=== PATIENT | male | born 1970 | race Caucasian/White ===

== ENCOUNTER 2022-03-29 13:15 | Emergency (ER) | payer OTHER, SELFPAY ==
--- NOTE | 2022-03-29 | ECG_ITS ---
Test Reason : hi bp Blood Pressure : / mmHG Vent. 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
[2022-03-29 13:57] VITALS: BP 190/100; PULSE 82; RESP 18; TEMP 36.6; O2SAT 96; BMI 45.9
[2022-03-29 14:16] LABS: MANUAL DIFF FLAG NO
[2022-03-29 14:19] LABS: Basophils Percent Auto 0.3 % (0-2); Eosinophils Absolute Auto 0.1 X10*3/uL (0.0-0.4); Eosinophils Percent Auto 0.8 % (0-4); Hematocrit 47.7 % (42.0-52.0); Hemoglobin 15.8 g/dl (14.0-18.0); Imm Gran Abs Auto 0.05 X10*3/uL (0.00-0.03); Imm Gran Pct Auto 0.4 % (0.0-0.4); Lymphocytes Absolute Auto 0.9 X10*3/uL (1.2-4.9); Lymphocytes Percent Auto 7.9 % (20-40); Mean Corpuscular HGB Conc 33.1 g/dl (31.0-36.0); Mean Corpuscular Hemoglobin 29.7 pg (27.0-33.0); Mean Corpuscular Volume 89.7 fL (80.0-98.0); Mean Platelet Volume 10.7 fL (9.4-12.4); Monocytes Absolute Auto 0.6 X10*3/uL (0.1-1.2); Monocytes Percent Auto 4.6 % (2-11); Neutrophils Absolute Auto 10.2 x10*3/uL (2.0-8.3); Platelet Count 250 X10*3/uL (160-400); Red Blood Count 5.32 X10*6/uL (4.60-5.80); Red Cell Distribution Width 13.7 % (11.0-16.0); White Blood Count 11.8 X10*3/uL (4.8-10.8)
[2022-03-29 14:46] LABS: Anion Gap 12 (12-20); Blood Urea Nitrogen 20 mg/dL (9-16); Calcium 9.8 mg/dL (8.4-10.2); Carbon Dioxide 26 mmol/L (22-29); Chloride 106 mmol/L (96-108); Estimated Glomerular Filt Rate > 60; Glucose Random 113 mg/dL (60-115); Potassium 4.9 mmol/L (3.3-5.1); Sodium 139 mmol/L (135-145)
[2022-03-29 22:48] LABS: Alanine Aminotransferase 84 U/L (0-40); Albumin Level 4.2 g/dL (3.5-5.0); Alkaline Phosphatase 67 U/L (39-117); Aspartate Amino Transferase 41 U/L (5-37); Bilirubin Direct 0.4 mg/dL (0.0-0.5); Bilirubin Total 1.4 mg/dL (0.0-1.0); Lipase 29 U/L (8-78); Total Protein 7.6 g/dL (6.5-8.0)
[2022-03-29 23:49] VITALS: BP 148/96; PULSE 91; RESP 20; O2SAT 96
--- NOTE | 2022-03-30 00:01 | ED.ABDPAIN ---
HPI - Abdominal Pain General Chief Complaint: Abdominal Pain Stated Complaint: pain in side Time Seen by Provider: 03/29/22 22:31 Source: patient Mode of arrival: ambulatory History of Present Illness HPI narrative: 52-year-old male who presents with right flank pain that started suddenly at 10:30 and was associated nausea, vomiting denies any fever or chills or difficulty with urination. Patient denies any previous history of renal colic. At the time of interview patient states that his pain has almost completely resolved it was explained that he likely passed a stone. Related Data Previous Rx's Medication Instructions Recorded ondansetron 4 mg disintegrating 4 mg PO Q6H PRN #7 tab 03/30/22 tablet tamsulosin 0.4 mg capsule (Flomax) 0.4 mg PO BEDTIME #4 cap 03/30/22 Allergies Allergy/AdvReac Type Severity Reaction Status Date / Time No Known Allergies Allergy Verified 03/29/22 13:56 Review of Systems Review of Systems Pertinent positives and negatives as stated HPI 10 point review of systems is otherwise negative. [facility] Past Medical History Source: nursing notes reviewed Social History Social History Advance Directives: No Advance Directives Information Provided: No Physical Exam ED Vital Signs: Vital Signs - 24 hr 03/29/22 13:57 03/29/22 23:49 Temperature 97.9 F Pulse Rate 82 91 Respiratory Rate 18 20 Blood Pressure 190/100 H 148/96 H Pulse Oximetry 96 96 BMI result Body Mass Index 45.9 VITAL SIGNS: Reviewed. GENERAL: Elevated BMI, Well developed, well nourished, in no acute distress. HEAD: Normocephalic/atraumatic EYES: PERRLA, EOMI EARS: Ext canals without abnormality OROPHARYNX: no oral lesions noted, posterior pharynx clear LUNGS: Normal breath sounds. No adventitious sounds or accessory muscle use. SpO2<96> CARDIOVASCULAR: Regular rate and rhythm without noted murmurs, no JVD or lower extremity edema. ABDOMEN: Soft, non-tender, non-distended with bowel sounds. MUSCULOSKELETAL: No tenderness, deformities, or effusions noted on gross inspection. EXTREMITIES: No cyanosis, clubbing or edema. SKIN: Inspection of the skin reveals no rashes. NEUROLOGIC: Alert and oriented x 4. Strength and sensation to light touch were grossly intact x 4. Course Course Course Narrative: 52-year-old male with history and clinical presentation after review of all investigations most consistent with renal colic and likely passed stone. Patient expresses fear possible recurrence, he was counseled that this can happen again that he should increase his water intake and limit the amount carbonated and caffeinated beverages. MDM - Abdominal Pain Lab Data Result diagrams: 03/29/22 14:10 03/29/22 14:10 Labs: Lab Results 03/29/22 03/29/22 Range/Units 14:10 14:10 WBC 11.8 H (4.8-10.8) X10*3/uL RBC 5.32 (4.60-5.80) X10*6/uL Hgb 15.8 (14.0-18.0) g/dl Hct 47.7 (42.0-52.0) % MCV 89.7 (80.0-98.0) fL MCH 29.7 (27.0-33.0) pg MCHC 33.1 (31.0-36.0) g/dl RDW 13.7 (11.0-16.0) % Plt Count 250 (160-400) X10*3/uL MPV 10.7 (9.4-12.4) fL Immature Gran % (Auto) 0.4 (0.0-0.4) % Neut % (Auto) 86.0 H (45-73) % Lymph % (Auto) 7.9 L (20-40) % [place] % (Auto) 4.6 (2-11) % Eos % (Auto) 0.8 (0-4) % Baso % (Auto) 0.3 (0-2) % Lymph # (Auto) 0.9 L (1.2-4.9) X10*3/uL [place] # (Auto) 0.6 (0.1-1.2) X10*3/uL Eos # (Auto) 0.1 (0.0-0.4) X10*3/uL Baso # (Auto) 0.0 (0.0-0.2) X10*3/uL Abs Immat Gran (auto) 0.05 H (0.00-0.03) X10*3/uL Absolute Neuts (auto) 10.2 H (2.0-8.3) x10*3/uL Absolute Nucleated RBC 0.000 (0.0-0.012) X10*3/uL Nucleated RBC % (auto) 0.0 (0.0-0.2) /100WBC Sodium 139 (135-145) mmol/L Potassium 4.9 (3.3-5.1) mmol/L Chloride 106 (96-108) mmol/L Carbon Dioxide 26 (22-29) mmol/L Anion Gap 12 (12-20) BUN 20 H (9-16) mg/dL Creatinine 1.00 (0.5-1.4) mg/dL Estim Creat Clear Calc 123.0 Estimated GFR > 60 Random Glucose 113 (60-115) mg/dL Calcium 9.8 (8.4-10.2) mg/dL Total Bilirubin 1.4 H (0.0-1.0) mg/dL Direct Bilirubin 0.4 (0.0-0.5) mg/dL AST 41 H (5-37) U/L ALT 84 H (0-40) U/L Alkaline Phosphatase 67 (39-117) U/L Total Protein 7.6 (6.5-8.0) g/dL Albumin 4.2 (3.5-5.0) g/dL Lipase 29 (8-78) U/L Discharge Plan Discharge Clinical Impression: Renal colic Patient Disposition: Home, Self-Care Instructions: Renal Colic (ED) Additional Instructions: 1. Recommend [id number] Tylenol/ibuprofen as needed for pain control. 2. You should increase your fluid hydration especially with water and limit the amount carbonated/caffeinated beverages. 3. You have been provided with a prescription for nausea as well as a referral to follow-up with urology. 4. Touch base with your primary care provider by calling the office in the morning. Return to the ER for any acute worsening of symptoms. Prescriptions: New ondansetron 4 mg tablet,disintegrating 4 mg PO Q6H PRN (Reason: nausea and vomiting) Qty: 7 0RF tamsulosin [Flomax] 0.4 mg capsule 0.4 mg PO BEDTIME Qty: 4 0RF Referrals: Mitchell Moss MD [Physician] - (Renal colic, UA shows trace Amm Biurate, pain free at discharge)
[2022-03-30] MEDS: Ibuprofen 400 MG TABLET PO (00:25)
[2022-03-30] MEDS: Acetaminophen 325 MG TABLET 975 MG PO (00:25)
[2022-03-30] MEDS: Tamsulosin HCL 0.4 MG CAPSULE PO (00:25)
[2022-03-30] MEDS: Ondansetron ODT 4 MG TAB.RAPDIS TRANSLINGU (00:26)
[2022-03-30 00:28] VITALS: BP 157/82; PULSE 88; RESP 20; O2SAT 98
== END 2022-03-30 00:32 | disposition home or self-care (01) ==
PROVIDERS: Emergency Provider Student in an Organized Health Care Education/Training Program
DX: N23 Unspecified renal colic (principal); R03.0 Elevated blood-pressure reading, without diagnosis of hypertension; Z79.899 Other long term (current) drug therapy
CPT/HCPCS: 36415; 80048; 80076; 83690; 85025; 93005; 99283; 99284

== ENCOUNTER 2024-07-21 18:35 | Emergency (ER) | payer OTHER, SELFPAY ==
--- NOTE | ~2024-07-21 | XR_ITS ---
EXAMINATION: XR HAND, LEFT CLINICAL INFORMATION: Pain. Injury. COMPARISON: None available. TECHNIQUE: PA, lateral, and oblique views of the left hand. FINDINGS: No acute fracture or dislocation. No radiopaque foreign body in the soft tissues. 2 mm negative ulnar variance noted. Bony structures otherwise unremarkable. XR/XR hand LT min 3V IMPRESSION: * No acute fracture or dislocation. * 2 mm negative ulnar variance. Electronically signed by: Iraida Gould MD 07/21/2024 07:21 PM EDT
[2024-07-21 18:43] VITALS: BP 150/64; PULSE 70; RESP 16; TEMP 36.2; O2SAT 97; BMI 40.5
--- NOTE | 2024-07-21 18:48 | ED.EXTPRO ---
HPI - Extremity Problem General Chief complaint: Extremity Injury, Upper Stated complaint: LT hand pain Time Seen by Provider: 07/21/24 19:56 Source: patient Mode of arrival: ambulatory Limitations: no limitations History of Present Illness ED Provider: Janet Laura PA-C HPI Narrative: Patient is a 54 year old assigned male at with no reported medical history presenting to the emergency department today with left hand pain. Patient states that approximately 1 week ago he smashed his left hand and has been having pain in it. Patient states that he was once told he has carpal tunnel in the left wrist and wonders if this is some of that. Patient denies any dizziness, lightheadedness, abdominal pain, nausea, vomiting, fever, chills, blurry vision, double vision, loss of vision, chest pain, difficulty breathing, shortness of breath, back pain, night sweats, pain with urination, increased urinary frequency, increased urinary urgency, blood in his urine or stool, syncope or a near syncopal episode, bowel incontinence, bladder incontinence, or any other complaints at this time. MD Complaint: extremity pain Onset (ago): week(s) (1) Pain Consistency: constant Location: left and upper extremity Relieving factors: nothing Exacerbating factors: nothing Associated symptoms: denies other symptoms Related Data Previous Rx's ?Medication ?Instructions ?Recorded ondansetron 4 mg disintegrating 4 mg PO Q6H PRN nausea and 03/30/22 tablet vomiting #7 tabs tamsulosin 0.4 mg capsule (Flomax) 0.4 mg PO BEDTIME #4 caps 03/30/22 Allergies Allergy/AdvReac Type Severity Reaction Status Date / Time No Known Allergies Allergy Verified 07/21/24 18:46 Review of Systems Constitutional: Constitutional: Reports no additional constitutional complaints, Denies chills, Denies fever(s) and Denies night sweats Eyes: Eyes: Reports no additional eye complaints, Denies blurry vision, Denies change in vision, Denies diplopia, Denies eye discharge, Denies loss of vision and Denies eye pain ENT: Denies dizziness Cardiovascular: Cardiovascular: Reports no additional cardiovascular complaints, Denies chest pain, Denies lightheadedness, Denies Loss of Consciousness and Denies dyspnea Respiratory: Respiratory: Reports no additional respiratory complaints and Denies dyspnea Gastrointestinal: Gastrointestinal: Reports no additional gastrointestinal complaints, Denies abdominal pain, Denies melena, Denies hematochezia, Denies change in bowel habits and Denies change in stool character Genitourinary: Genitourinary: Reports no additional male genitourinary complaints, Denies hematuria, Denies oliguria, Denies difficulty urinating, Denies dysuria, Denies urinary frequency, Denies urinary hesitancy, Denies urinary incontinence and Denies urinary urgency Musculoskeletal: Musculoskeletal: Reports no additional musculoskeletal complaints, Denies numbness and Denies tingling Comments: left hand pain Neurologic: Denies dizziness, Denies loss of vision, Denies numbness and Denies tingling Psychiatric: Psychiatric: Reports no additional psychiatric complaints Endocrine: Endocrine: Reports no additional endocrine complaints Hematologic/Lymphatic: Hematologic/Lymphatic: Reports no additional hematologic/lymphatic complaints Allergic/Immunologic: Allergic/Immunologic: Reports no additional allergic/immunologic complaints PMFSH Past Medical History Attestation statement: The following information was validated with the patient. Source: old records reviewed and nursing notes reviewed Social History Social History Advance Directives: No Advance Directives Information Provided: No Physical Exam Vital Signs: Vital Signs: Last Vital Signs Temp 97.4 F 07/21/24 20:12 Pulse 76 07/21/24 20:12 Resp 18 07/21/24 20:12 BP 158/84 H 07/21/24 20:12 Pulse Ox 98 07/21/24 20:12 O2 Del Method Room Air 07/21/24 18:43 BMI result Body Mass Index 40.5 Const: General: cooperative, no acute distress, alert and awake Nutritional Appearance: well nourished Orientation/consciousness: patient oriented x3 Limitations: no limitations HEENT: Head: Yes normal to inspection and Yes atraumatic Ears: hearing grossly normal bilaterally and external ears normal General nose exam: Normal external nose present, no nasal discharge noted and no epistaxis Face and sinus: Yes normal facial exam, No abrasion and No laceration Mouth: Normal oral and palatal mucosa present, no drooling and no muffled voice Eyes: General: appearance normal, both eyes and all related structures Periorbital: periorbital findings normal Eyelids: Yes eyelids normal Conjunctivae: conjunctivae normal Pupils: Equal, round and reactive pupils present EOM: EOMs intact bilaterally Neck: Neck: Yes normal visual inspection, Yes full ROM and Yes no lymphadenopathy Chest: Chest palpation & inspection: normal inspection of the chest Resp: Effort & Inspection: normal respiratory effort and able to speak in complete sentences GI: Inspection: Yes normal to inspection Neuro: General: patient oriented x3 and moves all extremities Cranial nerves: Yes Equal, round and reactive pupils present Cognition (Neuro): normal cognition Extrem: Other: positive tinel test on the left General: Yes normal to inspection, Yes full ROM and Yes capillary refill normal Psych: Appearance: grossly normal Mental Status: mental status grossly normal Affect: normal affect Attitude: cooperative Thought process: Normal thought process present Thought content: Normal thought content present Insight: Good insight present (Psych) Course Course Course Narrative: RME performed by Janet Laura PA-C. Patient is a 54 year old assigned male at presenting to the emergency department with left hand pain. Patient states he crushed his left hand last week and the pain is getting worse. 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 Imaging ordered. Patient placed back in the waiting room pending room availability and results. Medical Decision Making Medical Decision Making MDM Narrative: Patient is a 54 year old assigned male at with no reported medical history presenting to the emergency department today with left wrist pain. Patient's physical exam was as noted in the physical exam portion of this note - consistent with left sided carpal tunnel and a left hand contusion. Patient's left hand x-ray showed no acute process. I explained my physical exam findings as well as all test results to the patient. I answered all questions asked by the patient. I stressed the importance of the patient taking his medication as directed (either prescribed or as the over the counter packaging recommends). I stressed the importance of the patient following up with his primary care provider and an orthopedic provider. I stressed the importance of the patient returning to the emergency department immediately if his symptoms were to worsen or if he were to develop any dizziness, shortness of breath, difficulty breathing, chest pain, blurry vision, loss of vision, nausea, vomiting, abdominal pain, fever, chills, back pain, or any other complaints. Patient verbalized agreement and understanding with this treatment plan and discharge. Differential Diagnosis Differential Diagnoses: The differential diagnosis associated with the presentation includes Left hand pain Left hand strain Left hand fracture Left hand contusion Carpal tunnel flare Admission/Observation Consideration of admission/observation: Escalation of care including admission/observation considered Patient would have been admitted to the hospital had his work up had any findings where hospital admission was appropriate and his clinical presentation warranted hospital admission. Independent Interpretation I performed an independent interpretation of an: Plain X-Ray Interpretation: My interpretation is in agreement with the radiologist's impression of this imaging study. EXAMINATION: XR HAND, LEFT CLINICAL INFORMATION: Pain. Injury. COMPARISON: None available. TECHNIQUE: PA, lateral, and oblique views of the left hand. FINDINGS: No acute fracture or dislocation. No radiopaque foreign body in the soft tissues. 2 mm negative ulnar variance noted. Bony structures otherwise unremarkable. XR/XR hand LT min 3V IMPRESSION: * No acute fracture or dislocation. * 2 mm negative ulnar variance. Electronically signed by: Iraida Gould MD 07/21/2024 07:21 PM EDT Dictated By: Iraida Gould MD Signed By: Electronically signed by Iraida Gould MD 07/21/241920 Radiology Impression Discussion of test interpretation with radiology: I have reviewed the radiologist's reading. Discharge Plan Discharge Clinical Impression: Hand pain Patient Disposition: Home, Self-Care Instructions: Contusion in Adults (ED) Additional Instructions: Follow up with your primary care provider and a hand specialist. Return to the emergency department immediately if your symptoms worsen or if you develop any dizziness, shortness of breath, difficulty breathing, chest pain, blurry vision, loss of vision, nausea, vomiting, abdominal pain, fever, chills, back pain, or any other complaints. Prescriptions: No Action ondansetron 4 mg tablet,disintegrating 4 mg PO Q6H PRN (Reason: nausea and vomiting) Qty: 7 0RF tamsulosin [Flomax] 0.4 mg capsule 0.4 mg PO BEDTIME Qty: 4 0RF Referrals: [facility] Family Medicine [Provider Group] (Call to establish and follow up with a primary care provider. If you already have a primary care provider, please follow up with them.) [facility] Primary Care, [place] [Provider Group] (Call to establish and follow up with a primary care provider. If you already have a primary care provider, please follow up with them.) [facility] Primary Care,[place] [Provider Group] (Call to establish and follow up with a primary care provider. If you already have a primary care provider, please follow up with them.) [facility] Surgeons [Provider Group] (Call to establish and follow up with an orthopedic provider. ) Interventions: ED Discharge Assessment Last Done: 07/21/24 20:12 Discharge Date/Time: 07/21/24 20:14 Print Language: Czech
[2024-07-21 20:12] VITALS: BP 158/84; PULSE 76; RESP 18; TEMP 36.3; O2SAT 98
== END 2024-07-21 20:14 | disposition home or self-care (01) ==
PROVIDERS: Emergency Provider Emergency Medicine
DX: M79.642 Pain in left hand (principal)
CPT/HCPCS: 73130; 99282; 99283

== ENCOUNTER 2024-08-20 14:25 | Outpatient (AMB) | payer OTHER, SELFPAY ==
--- NOTE | 2024-08-20 14:27 | A.OFFVIS_ITS ---
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 EMG done in [facility] last year. Left hand is worse than right. Patient reports he has numbness, tingling and pain in all of his fingers of his bilateral hands. He expresses over a month ago his middle finger of the left hand had locked up and he was unable to bend his finger at all making him go to the emergency room. He expresses some days he has difficulty with gripping, grasping, and lifting. Reports he has to rub on his hands for relief. Hx of using yang hammer for work in past and repetitive motions with hands. Tylenol and ibuprofen offer no relief. 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 Patient reports that he was previously diagnosed with carpal tunnel syndrome at [facility] neurology, and he was sent to a hand specialist in [place], where the patient states he was told he needed surgery but declined and did not follow up. The patient states that approximately 1 month ago, he noticed severe pain in his left middle finger, and felt he was unable to move his left middle finger adequately. The patient states that this woke him up to the fact that he was now experiencing tingling in his hands at all times, and to the fact that he should probably have surgery. Today, the patient reports that he is experiencing tingling all the time, but that he does still have sensation to the tips of all digits of his bilateral hands. Patient also reports that the significant pain he was experiencing in his left middle finger has since resolved. No other acute complaints or concerns at this time. [facility] Social History (Updated 08/20/24 @ 14:30 by EMMA Beth) Alcohol intake: former Patient Tobacco Use Status: Former Tobacco user Current occupational status: employed Current occupation: self employed / right handed Review of Systems Const All systems reviewed & are unremarkable except as noted in HPI and below Physical Exam Vital Signs: BMI result Body Mass Index 38.9 Extrem Other: Neuro: Patient reports tingling in the tips of all digits of bilateral hands at this time, but states that he is still able to appreciate what he calls normal sensation. No thenar or intrinsic wasting. Good APB muscle firing and good finger cross. Vascular: Capillary refill brisk. ROM: Patient can make a fist and extend all their digits. Skin: No lacerations or abrasions noted. General: No ecchymosis. No erythema or evidence of infection. Negative Tinel's test bilaterally Assessment & Plan Assessment & Plan (1) Numbness and tingling in both hands: Code(s): R20.0 - Anesthesia of skin; R20.2 - Paresthesia of skin Category: Medical (2) Bilateral hand pain: Code(s): M79.641 - Pain in right hand; M79.642 - Pain in left hand Category: Medical Plan 1. Bilateral hand pain, numbness, tingling Ongoing for approximately 1-2 years At this time, patient is informed that we can not get him signed up for surgery until we have the results of his EMG and nerve conduction study done at [facility] Patient has signs a release of information today so we can get these results from [facility] We will call the patient when we have the results of his EMG and nerve conduction study, and he will come to the office for results review and discussion of further treatment options indicated at that time. Patient was amenable to this plan Patient will follow-up after we get the results of his EMG and nerve conduction study for results review and discussion of further treatment options, sooner with any acute concerns Medications: Discontinued ondansetron Discontinued Reason: Patient no longer taking 4 mg PO Q6H PRN 7 tabs 0RF nausea and vomiting tamsulosin (Flomax) Discontinued Reason: Patient no longer taking 0.4 mg PO BEDTIME 4 caps 0RF Coding Level of Care Code New Pt Level 3 (26020) Diagnoses Numbness and tingling in both hands R20.0; R20.2 Bilateral hand pain M79.641; M79.642
[2024-08-20 14:29] VITALS: BMI 38.9
== END 2024-08-20 14:56 | disposition home or self-care (01) ==
DX: M79.641 Pain in right hand (principal); M79.642 Pain in left hand; R20.0 Anesthesia of skin
CPT/HCPCS: 99203

== ENCOUNTER → 2024-08-20 14:25 | Outpatient (BNVA) | payer OTHER, SELFPAY | DX: M79.641 Pain in right hand (principal); M79.642 Pain in left hand; R20.0 Anesthesia of skin; R20.2 Paresthesia of skin | CPT/HCPCS: 99202 ==